=== PATIENT | female | born 1965 | race Caucasian/White ===

== ENCOUNTER → 2018-04-11 11:25 | Outpatient (CLI) | payer OTHER, SELFPAY ==
--- NOTE | 2018-04-11 | DI.MG.S_ITS ---
BILATERAL DIGITAL SCREENING MAMMOGRAM 3D/2D WITH CAD: 04/11/2018 CLINICAL: Routine screening. Comparison is made to exams dated: 09/01/2010 mammogram, 08/06/2009 mammogram, and 04/26/2007 mammogram - [facility]. The tissue of both breasts is heterogeneously dense. This may lower the sensitivity of mammography. Current study was also evaluated with a Computer Aided Detection (CAD) system. No significant masses, calcifications, or other findings are seen in either breast. There has been no significant interval change. IMPRESSION: NEGATIVE There is no mammographic evidence of malignancy. A 1 year screening mammogram is recommended. This exam was interpreted at Station ID: [id number]. NOTE: For mammograms, a report in lay terms will be sent to the patient. Approximately 15% of breast malignancies will not be visualized mammographically. In the management of a palpable breast mass, a negative mammogram must not discourage biopsy of a clinically suspicious lesion. Electronically Signed By: Jesus ayers/griffin:04/11/2018 16:43:23 letter sent: Normal Exam ACR BI-RADS Category 1: Negative [id number]
== END ==
PROVIDERS: PCP Nurse Practitioner Family; Visit Provider Nurse Practitioner Family
DX: Z12.31 Encounter for screening mammogram for malignant neoplasm of breast (principal)
CPT/HCPCS: 77063; 77067

== ENCOUNTER → 2023-10-07 14:20 | Outpatient (CLI) | payer OTHER, MEDICAID, SELFPAY | PROVIDERS: Family Provider Nurse Practitioner Family; PCP Registered Nurse; Referring Provider Registered Nurse; Visit Provider Registered Nurse | DX: G62.9 Polyneuropathy, unspecified (principal) | CPT/HCPCS: 95886; 95911 ==

== ENCOUNTER → 2023-10-08 12:53 | Outpatient (CLI) | payer OTHER, MEDICAID, SELFPAY ==
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
--- NOTE | 2023-10-08 | DI.CT.S_ITS ---
PROCEDURE: CT LUNG LOW DOSE SCREENING INDICATIONS: HISTORY OF SMOKING TECHNIQUE: Noncontrast 2.0-2.5 mm thick sections acquired from the pulmonary apices to the posterior costophrenic angles. 7 mm thick axial MIP, and 5 mm coronal and sagittal reformats were then acquired. For radiation dose reduction, the following was used: automated exposure control, adjustment of mA and/or kV according to patient size. COMPARISON: None. FINDINGS: Image quality: Diagnostic. Lower Neck: No enlarged lymph nodes. Thyroid: Normal CT appearance. Axillae: No enlarged lymph nodes. Chest Wall: Unremarkable. Bones: Unremarkable. Lungs and Pleura: No pneumothorax or pleural effusions. Biapical pleural plaquing. No pleural calcifications. No suspicious lung nodules, masses, ground-glass opacities, or consolidations. Central and peripheral airways are normal without bronchial wall thickening or bronchiectasis. Heart: Heart size is normal. No pericardial effusion. Thoracic Vessels: The aorta and pulmonary arteries demonstrate normal size. Mediastinum and [place]: No enlarged lymph nodes. Esophagus: No wall thickening. Tiny hiatal hernia. Upper Abdomen: The visible upper abdomen demonstrates moderate hepatic steatosis. Visible solid organs are otherwise normal. IMPRESSION: No suspicious pulmonary nodules. LUNG-RADS 1; continued annual screening, if eligible. Clinically Significant Non-pulmonary Findings: Moderate hepatic steatosis. Dictated by: Mariza Polanco M.D. on 10/08/2023 at 14:29 Approved by: Mariza Polanco M.D. on 10/08/2023 at 14:33
== END ==
PROVIDERS: Family Provider Nurse Practitioner Family; PCP Registered Nurse; Referring Provider Registered Nurse; Visit Provider Registered Nurse
DX: R01.1 Cardiac murmur, unspecified (principal); Z87.891 Personal history of nicotine dependence; Z12.2 Encounter for screening for malignant neoplasm of respiratory organs; K76.0 Fatty (change of) liver, not elsewhere classified
CPT/HCPCS: 71271; 93306

== ENCOUNTER → 2023-11-06 15:56 | Outpatient (CLI) | payer OTHER, MEDICAID, SELFPAY ==
--- NOTE | 2023-11-06 | DI.MRI.S_ITS ---
PROCEDURE: MR LUMBAR SPINE WO CON INDICATIONS: LUMBAR RADICULOPATHY TECHNIQUE: Noncontrast sagittal T1 spin echo and T2 fast echo, sagittal STIR, and T2 fast spin echo through the lumbar spine. In cases with scoliosis, additional coronal T2 fast spin echo may be performed. COMPARISON: None. FINDINGS: Image quality: Excellent. Alignment and Curvature: There is normal bony alignment. Bone Marrow: Marrow is of normal overall signal. No acute vertebral body compression fractures. Spinal Cord: Conus medullaris terminates at the L1 level. Visualized cord demonstrates normal signal and size. 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 Paraspinous Soft Tissues: No paravertebral masses. T12-L1: No disc bulge, spinal stenosis or foraminal narrowing. L1-L2: No disc bulge, spinal stenosis or foraminal narrowing. Mild facet and ligamentum flavum hypertrophy. L2-L3: No disc bulge, spinal stenosis or foraminal narrowing. Mild facet and ligamentum flavum hypertrophy as well as minimal epidural lipomatosis. L3-L4: Minimal disc bulge without spinal stenosis. Minimal bilateral foraminal narrowing with facet and ligamentum flavum hypertrophy. L4-L5: Mild disc bulge with very minimal appearance of canal narrowing. Minimal left foraminal narrowing with facet and ligamentum flavum hypertrophy as well as minimal epidural lipomatosis. L5-S1: Mild disc bulge without spinal stenosis. No foraminal narrowing. IMPRESSION: Early degenerative changes demonstrating minimal areas of disc bulges well as foraminal narrowing as above. Dictated by: Sarah Gillette M.D. on 11/08/2023 at 11:14 Approved by: Sarah Gillette M.D. on 11/08/2023 at 11:17
== END ==
LOC: MRI 15:56
PROVIDERS: Family Provider Nurse Practitioner Family; PCP Registered Nurse; Referring Provider Registered Nurse; Visit Provider Registered Nurse
DX: M47.26 Other spondylosis with radiculopathy, lumbar region (principal); Z78.9 Other specified health status
CPT/HCPCS: 72148

== ENCOUNTER → 2023-11-11 19:09 | Outpatient (ROUT) | payer OTHER, MEDICAID, SELFPAY ==
[2023-11-11 19:58] LABS: Influenza A - CEPHEID Flu A NEGATIVE (NEGATIVE); Influenza B - CEPHEID Flu B NEGATIVE (NEGATIVE); Respiratory Syncytial Virus POSITIVE (Negative)
[2023-11-11 20:37] LABS: COVID-19 CEPHEID 4-PLEX PCR POSITIVE (Negative)
== END ==
PROVIDERS: Family Provider Nurse Practitioner Family; PCP Registered Nurse; Visit Provider Registered Nurse
DX: R05.1 Acute cough (principal)
CPT/HCPCS: 0241U

== ENCOUNTER 2023-12-22 09:00 | Outpatient (RCR) | payer OTHER, MEDICAID, SELFPAY ==
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
--- NOTE | 2023-11-01 17:18 | PT.OPPOC ---
Physical, Occupational & Speech Therapy At [facility] Current Diagnoses Lumbago with sciatica, unspecified side (11/01/23) Visit Care Team Role Provider Type GUILLERMO Duval Family Provider Non-Staff Specialty: Medical Address: [address] [place], [address] Email: GUILLERMO Brambila Attending Provider Advanced Coarse Wire Drawer Primary Care Provider Referring Provider Specialty: Family Practice Address: [address] [place], [address] Email: [email or web address] Plan Of Care PT-OP-T Assessment and Plan Start: 11/01/23 09:06 Freq: Status: Active Protocol: Document 11/01/23 09:07 NM (Rec: 11/01/23 17:32 NM [id number]) Physical Therapy Assessment Rehab Potential Rehabilitation Potential Good Evaluation Complexity Number of Personal Factors/Comorbidities 1-2 Number of Body Systems Impaired 4 or More Clinical Presentation at Evaluation Stable Impairments Impairments Activity Tolerance,Balance, Coordination,Functional Activities,Functional Mobility ,Gait,Pain,Posture,ROM, Sensation,Soft Tissue Mobility ,Strength,Transfers Goals Five Impairment strength Impairment trunk strength 4/5 Group Home Goal (LTG) Pt will be able to perform a trunk flexion MMT test with B scapulae clearing table (arms in front or behind head) for at least 10 seconds in order order to demonstrate improved trunk strength for better core stabilization. LTG Duration 8 weeks Four Impairment strength Impairment R hip flex 3+/5, ext and abd 4 -/5 L hip flex and ext 4-/5 Efficiency Miner Blasting Goal (LTG) Pt will improve B global hip strength by at least 1 grade to demonstrate increased hip strength for stabilization. LTG Duration 8 weeks Three Impairment strength Impairment 5x STS 21.25 seconds Short Term Goal (STG) Pt will demonstrate improved BLE strength by decreasing 5x STS to less than 20 seconds. STG Duration 4 weeks Efficiency Miner Blasting Goal (LTG) Pt will demonstrate improved BLE strength by decreasing 5x STS to less than 18 seconds LTG Duration 8 weeks Two Impairment ROM Impairment trunk flexion ROM 75% of AROM Efficiency Miner Blasting Goal (LTG) Pt will improve trunk flexion ROM to >75% (past mid-tibia) with pain of <5/10 in order to demonstrate improved ROM for ADLs. LTG Duration 8 weeks One Impairment function Impairment Oswestry 32/100 Group Home Goal (LTG) Pt will decrease Oswestry score by at least 12 points in order to demonstrate improved ADL tolerance and QOL LTG Duration 8 weeks Assessment Summary Assessment Pt is a 58 y.o. female presenting with low back pain s/p fall from a ladder in October 2022. Pt reports neural symptoms along her posterior legs, ending at her knees. She has most difficulty with standing or ambulating for extended periods of time, requiring seated rest breaks to relieve pain. Right leg strength is slightly less than left leg strength with most limitations at R hip flexion/ extension/abduction. Trunk ROM is most limited in flexion; however, she does have minor limitations in lateral flexion . Trunk strength is grossly 4/ 5. Decreased sensation reported along L lateral LE below knee to dorsal foot. Pain with resisted muscle testing is reproduced with R hip flexion, R knee flexion, and B trunk lateral flexion/ rotation. Pain is reproduced with palpation near L4-L5 and B SIJ/gluteals and lumbar spine springing. Pt has local pain radiation with 3D compression in Pendleton/Quadrant test, in addition to positive slump and straight leg raise tests which indicate disc involvement. Pt also reports lumbar spine/SI joint pain with B FADIR tests. PT and pt discussed exam findings and POC, to which pt verbalized agreement. She is scheduled for a future MRI. Pt would benefit from skilled PT to address limitations in trunk ROM and strength, in addition to BLE strength, postural education, biomechanics training in order to decrease pain symptoms, improve activity tolerance, and increase QOL. Physical Therapy Plan Frequency and Duration Frequency of Treatment 2x/Week Duration of treatment (weeks) 8 Plan of Care Start Date 11/01/23 Plan of Care End Date 12/27/23 Therapeutic Interventions Therapeutic Interventions Balance Training,Coordination Training,Gait Training,Home Exercise Program,Joint Mobilizations,Manual Therapy, Neuromuscular Re-education, Orthotic/Prosthetic Management ,Patient/Caregiver Education, Self-Care/Home Management, Sensory Integration,Soft Tissue Mobilization,Taping, Therapeutic Activities, Therapeutic Exercises Modalities Cold Pack/Ice Massage,Electric Stimulation,Hot Packs, Traction- Mechanical, Ultrasound,Vasopneumatic Devices Next Visit Focus/Plan Next Note Type Treatment Note Next Visit Plan LTR, KTC, distraction/supine 90/90, hip strengthening (abd, ext), TA activation Plan of Care Dates Plan of Care Start Date 11/01/23 Plan of Care End Date 12/27/23 Electronically Signed by: Slime Fung, PT 11/02/23 0357 If you are in agreement with this Plan of Care, please return a signed and dated copy. I have reviewed this Plan of Care and certify that the skilled therapy services above are required to meet the patient?s needs. Physician Signature Date Printed Name and Credentials Clinical Instructor Signature Printed Name and Credentials
--- NOTE | 2023-11-08 08:28 | PT-OP ANOTE ---
Pt did not show for today's appt, chart reviewing pt cancelled 11/05 due to COVID, unsure if still having symptoms, left message prefer cancel >24 hr notice if needed allow another utilize appt. Hope call back to let us know how doing and how can help support her reason for PT. Reminded of next PT appt 11/12 at 9am.
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
--- NOTE | 2024-01-12 08:11 | PT-OP ANOTE ---
[employer] left message about late cancel appt x2 last 2 and seen previous appts with last seen 12/21. Mentioned wanting to help her make progress and hoping to see her at next appt 01/18. Please call back if wanting to give further details of missed appts.
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
== END 2024-05-26 09:21 ==
LOC: PHYS 09:00
PROVIDERS: Family Provider Nurse Practitioner Family; PCP Registered Nurse; Referring Provider Registered Nurse; Visit Provider Registered Nurse
DX: M54.40 Lumbago with sciatica, unspecified side (principal)
CPT/HCPCS: 97014; 97110; 97140; 97162; 97530; 97535; G0283

== ENCOUNTER → 2024-03-23 14:08 | Outpatient (CLI) | payer OTHER, MEDICAID, SELFPAY ==
--- NOTE | 2024-03-23 14:10 | DI.RAD.S_ITS ---
PROCEDURE: XR CHEST 2V INDICATIONS: acute cough TECHNIQUE: 2 views of the chest were acquired. COMPARISON: [facility], CR, XR CHEST 1V, 02/20/2018, 11:49. [facility], CT, CT LUNG LOW DOSE SCREENING, 10/08/2023, 13:50. FINDINGS: Surgical changes and devices: None. Lungs and pleura: Patchy airspace opacities are present throughout the lower right lung. These have a similar distribution as the comparison plain film from February 20, 2018 suggesting a component of pulmonary scarring. However, superimposed acute airspace opacities cannot be excluded. No pleural effusion or pneumothorax. Mediastinum: Mediastinal contours are normal. Heart size is normal. Bones and chest wall: No suspicious bony abnormalities. Soft tissues appear unremarkable. IMPRESSION: Right pulmonary radiopacities. Differential considerations include acute aspiration/infection. Dictated by: Sofia Romero M.D. on 03/23/2024 at 15:42 Approved by: Sofia Romero M.D. on 03/23/2024 at 15:44
== END ==
LOC: RAD 14:09
PROVIDERS: Family Provider Nurse Practitioner Family; PCP Registered Nurse; Referring Provider Registered Nurse; Visit Provider Registered Nurse
DX: R05.1 Acute cough (principal)
CPT/HCPCS: 71046